=== PATIENT | male | born 1965 | race Caucasian/White ===

== ENCOUNTER 2019-05-20 10:10 | Emergency (ER) | payer OTHER ==
[~2019-05-20] VITALS: Ht 182.9 cm; Wt 105.5 kg
[~2019-05-20 10:10] MED LIST: D-ME473S2 PO; PRED20TA PO
[2019-05-20 10:18] VITALS: BP 123/71; PULSE 87; RESP 20; Ht 182.9 cm; Wt 105.5 kg
--- NOTE | 2019-05-20 10:38 | ERD ---
ER Documentation Chief Complaint Chief Complaint BIB PARAMEDICS FOR FLU LIKE SYMPTOMS HPI 54-year-old male brought in by rescue ambulance because he had a cough for 5 days. His cough is dry and worse at night and makes it difficult for him to sleep and sometimes he feels like he has shortness of breath at night. He also states he has had fevers at night. He did go to his primary care doctor yesterday and they gave him a prescription for a Z-Yandel as well as Tessalon Perles which she is taking but has not seen any significant improvement yet. He has no chest pain or palpitations. No hemoptysis or unplanned weight loss. No vomiting. ROS All systems reviewed and are negative except as per history of present illness. Medications Home Meds Active Scripts Dextromethorphan Hb-Promethazine Hcl* (Promethazine DM* Syrup) 473 Ml Syrup, 5 ML PO Q6 PRN for COUGH, #120 ML Prov:FLORINA MACE PA-C 05/20/19 Prednisone* (Prednisone*) 20 Mg Tab, 60 MG PO DAILY for 4 Days, TAB Prov:FLORINA MACE PA-C 05/20/19 Allergies Allergies: Coded Allergies: No Known Allergy (Unverified , 11/14/14) PMhx/Soc History of Surgery: Yes (testicular) Anesthesia Reaction: No Hx Neurological Disorder: No Hx Respiratory Disorders: No Hx Cardiac Disorders: No Hx Psychiatric Problems: No Hx Miscellaneous Medical Probl: No Hx Alcohol Use: Yes Hx Substance Use: No Hx Tobacco Use: Yes Smoking Status: Current every day smoker FmHx Family History: No diabetes Physical Exam Vitals Vital Signs Date Temp Pulse Resp B/P (MAP) Pulse Ox O2 O2 Flow FiO2 Time Delivery Rate 05/20/19 97.5 87 20 123/71 98 10:18 (88) Physical Exam INITIAL VITAL SIGNS: Reviewed by me GENERAL: Awake, alert and oriented x 4, well appearing, nontoxic, speaking in full sentences. No acute distress HEAD: Atraumatic NECK: Supple. No masses. Full range of motion. No meningismus. No midline tenderness. RESPIRATORY: Clear to auscultation bilaterally. Symmetric chest wall rise. No wheezing or rales. No accessory muscle use. CV: Regular rate and rhythm. No murmurs, rubs, or gallops. Procedures/MDM Patients is alert, oriented, well appearing, and in no distress with normal vital signs. There is no fever, tachycardia, or tachypnea. Patient likely has viral upper respiratory tract infection however he was given antibiotics by his primary care doctor so he can continue to take them as prescribed. A prescription for short course of prednisone as well as Promethazine DM. Patient counseled regarding my diagnostic impression and care plan. Prior to discharge all questions answered. Pt agrees with treatment plan and understands strict return precautions. Pt is instructed to follow up with primary care provider within 24-48 hours. Precautionary instructions provided including instructions to return to the ER if not improving or for any worsening or changing symptoms or concerns. Departure Diagnosis: Primary Impression: Bronchitis Condition: Stable Patient Instructions: Bronchitis, Antiobiotic Treatment (Adult) Additional Instructions: Call your primary care doctor TOMORROW for an appointment during the next 1-2 days.See the doctor sooner or return here if your condition worsens before your appointment time. FLORINA MACE PA-C May 20, 2019 10:38
== END 2019-05-20 10:45 | disposition home or self-care (01) ==
LOC: FTE 10:10
DX: J40 Bronchitis, not specified as acute or chronic (principal); F17.210 Nicotine dependence, cigarettes, uncomplicated
CPT/HCPCS: 99283